=== PATIENT | male | born 1995 | race Caucasian/White ===

== ENCOUNTER 2019-01-23 12:06 | Emergency (ER) | payer SELFPAY ==
[~2019-01-23] VITALS: Ht 172.7 cm; Wt 72.3 kg
[2019-01-23 12:19] VITALS: BP 126/77
--- NOTE | 2019-01-23 12:42 | NUR ---
PATIENT PRESENTS TO ED TODAY FOR LOWER ABD PAIN, DIARRHEA, FEVER, CHILLS X 4 MONTHS. PATIENT RECENTLY CONTACTED REGARDING EXPOSURE TO PAST PARTNEY HIV + 4 MONTHS AGO. RASH TO FOREHEAD X 1 WEEK NOTED. NO HX. NAD NOTED. PA AT BEDSIDE, AWAITING ORDERS, CALL LIGHT WITHIN REACH.
[2019-01-23] MEDS ORDERED: IBUPROFEN 800 MG TABLET PO ONE (13:00)
[2019-01-23 13:13] LABS: BASOPHILS # (AUTO) 0.08 x10^3/uL (0-0.1); BASOPHILS % (AUTO) 3 % (0-1); EOSINOPHILS % (AUTO) 3 % (1-7); LYMPHOCYTES # (AUTO) 0.83 x10^3/uL (1-3.4); LYMPHOCYTES % (AUTO) 27 % (22-44); MD NO; MEAN CORPUSCULAR HEMOGLOBIN 29.5 pg (27.5-34.5); MEAN CORPUSCULAR HGB CONC 33.3 g/dL (33.2-36.2); MEAN CORPUSCULAR VOLUME 88.7 fL (81-97); MEAN PLATELET VOLUME 8.9 fL (7.4-10.4); MONOCYTES # (AUTO) 0.53 x10^3/uL (0.2-0.8); MONOCYTES % (AUTO) 17 % (2-9); NEUTROPHILS # (AUTO) 1.58 x10^3/uL (1.8-6.8); NEUTROPHILS % (AUTO) 51 % (42-75); PLATELET COUNT 226 x10^3/uL (130-400); RED BLOOD COUNT 4.58 x10^6/uL (4.38-5.82); RED CELL DISTRIBUTION WIDTH 13.6 % (9.4-14.8)
[2019-01-23 13:25] LABS: ALANINE AMINOTRANSFERASE 29 U/L (12-78); ALBUMIN 3.3 g/dL (3.4-5.0); ANION GAP 5 mmol/L (5-15); CALCIUM 9.2 mg/dL (8.5-10.1); CHLORIDE 109 mmol/L (98-107); CREATININE 0.97 mg/dL (0.7-1.3)
[2019-01-23 13:27] LABS: ALKALINE PHOSPHATASE 115 U/L (45-117); BILIRUBIN,TOTAL 0.1 mg/dL (0.2-1.0); TOTAL PROTEIN 7.5 g/dL (6.4-8.2)
[2019-01-23] MEDS ORDERED: IBUPROFEN 800 MG TABLET ONE (13:42)
--- NOTE | 2019-01-23 13:45 | NUR ---
UA COLLECTED AND SENT TO LAB.
[2019-01-23 14:32] LABS: MICROSCOPIC NOT IND
[2019-01-23 14:33] LABS: CULTURE INDICATED? NO
--- NOTE | 2019-01-23 14:56 | NUR ---
ASSUMED CARE OF PT WHILE PRIMARY RN AT LUNCH. PT GIVEN MEAL TRAY.
--- NOTE | 2019-01-23 15:42 | NUR ---
Patient/Caregiver given discharge instructions and they have confirmed that they understand the instructions. Patient ambulatory with steady gait. Patient provided taxi voucher to [facility] to speak with resources available to help get patient back to [facility]. Pt reports being homeless at this time and trying to get back to [facility].
== END 2019-01-23 16:01 | disposition home or self-care (01) ==
LOC: ED 13:13
DX: Z21 Asymptomatic human immunodeficiency virus [HIV] infection status (principal); R21 Rash and other nonspecific skin eruption; F17.210 Nicotine dependence, cigarettes, uncomplicated
CPT/HCPCS: 36415; 80053; 81003; 85025; 87806; 99283; G0475

== ENCOUNTER 2019-02-11 01:26 | Emergency (ER) | payer OTHER ==
[~2019-02-11] VITALS: Ht 170.2 cm; Wt 70.0 kg
[2019-02-11 01:28] VITALS: BP 117/75
--- NOTE | 2019-02-11 02:07 | NUR ---
SOFTWARE APPLICATIONS ARCHITECT: CALLED FOR PIT BY MARIELOS RAMIREZ PT IS OUT SMOKING AT THIS TIME. NILX 1
--- NOTE | 2019-02-11 02:20 | NUR ---
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
--- NOTE | 2019-02-11 02:43 | NUR ---
pt found in lobby now. pt to room 16
[2019-02-11] MEDS ORDERED: IBUPROFEN 600 MG TABLET ONE (03:21)
[2019-02-11] MEDS ORDERED: IBUPROFEN 600 MG TABLET PO ONE (03:30)
--- NOTE | 2019-02-11 03:48 | NUR ---
PT AMBULATING IN HALLWAY AND IN ROOM STEADILY. PT DCd AT 0325. PT STILL IN ROOM 10 MIN LATER LAYING IN GURNEY. PT ASKED TO GO TO DC DESK. WHEN THIS RN WENT BACK TO CLEAN ROOM, PT STILL IN ROOM, NOW CHANGING CLOTHES. PT GIVEN TIME TO CHANGE CLOTHING. WHEN CHECKED ON PT AGAIN, PT MAKING PHONE CALLS. PT ASKED TO GO TO DC AGAIN, PT STATED HE WANTS TO BE WHEELED OUT BECAUSE HE IS STUGGLING TO WALK. PT WHEELED TO DC DESK.
== END 2019-02-11 03:27 | disposition home or self-care (01) ==
LOC: ED 03:16
DX: K64.4 Residual hemorrhoidal skin tags (principal)
CPT/HCPCS: 99283